=== PATIENT | female | born 1950 | race Caucasian/White ===

== ENCOUNTER 2016-11-13 11:37 | Outpatient (CLI) | payer OTHER ==
[2016-11-13 12:37] LABS: eGFR (African) > 60; eGFR (Non-African) > 60
--- NOTE | 2016-11-13 20:21 | Diagnostic Imaging Report ---
Name: OLIVE FERRERA ~~ ~~ : 46 ~~ Acc #: [id number]~~ DOS: Nov 13, 2016 11:57:41 AM CDT ~~ Mod: CR ~~ Desc: LOWER EXTREMITY 1 of 1 TEDDYLUISSAVANNA~ [facility] [address] [facility] [address] [address] ~ ~ ~ ~ Report Submission Date: Nov 13, 2016 3:10:44 PM CDT Patient ~ Study Name: OLIVE FERRERA ~ Date: Nov 13, 2016 11:57:41 AM CDT ~ Modality Type: CR Gender: F ~ Description: LOWER EXTREMITY : 46 ~ Institution: [facility] Physician: SAVANNA ESPINAL ~ ~ ~ ~ 4 views of the left femur History: right kidney mass seen on us, us sent for comparison Findings: No comparison studies Postsurgical changes are noted at the left proximal femur with surgical plate and screws in place, there is proximal left femoral deformity Degenerative changes are noted at the left hip and the knee Chondrocalcinosis is present at the knee, no evidence of acute fracture or dislocation, no suprapatellar effusion Impression: 1. Internal fixation of old proximal left femur fracture, intact hardware 2. Degenerative changes left hip and knee. No acute fracture or dislocation. No suprapatellar effusion. 3. Chondrocalcinosis at the knee. ~ Electronically signed on Nov 13, 2016 3:10:44 PM CDT by: Kelly VASQUEZ
== END 2016-11-13 11:40 ==
LOC: LAB 11:37
PROVIDERS: ATTEND Physician Assistant
DX: Z79.1 Long term (current) use of non-steroidal anti-inflammatories (NSAID) (principal); E03.9 Hypothyroidism, unspecified; M79.605 Pain in left leg
CPT/HCPCS: 36415; 73552; 80053; 84443

== ENCOUNTER 2016-12-22 14:50 | Outpatient (CLI) | payer OTHER ==
--- NOTE | 2016-12-22 15:48 | Diagnostic Imaging Report ---
[facility] [address] [facility].[address] [address] Report Submission Date: Dec 22, 2016 3:40:26 PM CDT Patient Study Name: NASRIN FERRERA Date: Dec 22, 2016 3:00:53 PM CDT Modality Type: CR Gender: F Description: SPINE : 46 Institution: [facility] Physician: HARSH SEQUEIRA - OP 3 views of the lumbar spine History: BACK PAIN. RADIATES TO L LEG Findings: No comparison studies Extensive degenerative changes are noted in the lumbar lumbar spine, most prominent from L4 to S1 with intervertebral disc space narrowing, facet arthropathy and osteophytes. Anterolisthesis of L4 on L5. Vacuum disc phenomenon L5-S1. Vascualr calcification is seen Impression: Extensive lower lumbar spine degenerative changes worst from L4 to S1 as above Grade I- II anterolisthesis of L4 on L5. Vacuum disc phenomenon L5-S1 Loss of height /compression deformity T12 vertebral body Electronically signed on Dec 22, 2016 3:40:26 PM CDT by: Kelly VASQUEZ
== END 2016-12-22 14:52 ==
LOC: RAD 14:50
PROVIDERS: ATTEND Family Medicine
DX: M54.41 Lumbago with sciatica, right side (principal)
CPT/HCPCS: 72100

== ENCOUNTER 2016-12-28 10:00 | Outpatient (CLI) | payer OTHER ==
--- NOTE | 2016-12-28 12:40 | Diagnostic Imaging Report ---
[facility] [address] [facility].[address] [address] Report Submission Date: Dec 28, 2016 12:33:31 PM CDT Patient Study Name: NASRIN FERRERA Date: Dec 28, 2016 11:00:28 AM CDT Modality Type: MR Gender: F Description: MRI L SPINE W/O CONTRAST : 46 Institution: [facility] Physician: HARSH SEQUEIRA - MENDOZA MRI of the lumbar spine Clinical history: Low back pain and left lower extremity sciatica Routine MRI of the lumbar spine is performed using sagittal of T1, T2 and STIR images followed by axial T1 and T2 weighted images , study demonstrate the following: Degenerated disc at the level of T12. T12/L1 disc level: Normal. L1/L2 disc level: 4 mm generalized bulging disc without spinal stenosis . L2/L3 disc level: Normal . L3/L4 disc level: 3 mm generalized bulging disc without spinal stenosis . L4 / L5 disc level: The disc is degenerated , narrowed with a grade I anterior spondylolisthesis of L4/L5 with 5 mm generalized bulging disc with central disc protrusion resulted in mild narrowing of the spinal canal at L4/L5 . L5/S1 disc level: The disc is degenerated, narrowed with 5 mm generalized bulging disc. No fractures or significant bone marrow edema . Impression: Multilevel disc disease process most pronounced at L4/L5 and L5/S1 as above described Electronically signed on Dec 28, 2016 12:33:31 PM CDT by: Ru VASQUEZ
== END 2016-12-28 10:02 ==
LOC: RAD 10:00
PROVIDERS: ATTEND Family Medicine
DX: M51.37 Other intervertebral disc degeneration, lumbosacral region (principal)
CPT/HCPCS: 72148

== ENCOUNTER 2017-01-05 12:25 | Outpatient (CLI) | payer OTHER ==
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
--- NOTE | 2017-01-07 11:21 | LESI WITH FLUORO ---
REFERRING PHYSICIAN: Dr. Ayde Light OPERATIVE PROCEDURE: Left L4-L5 epidural steroid injection with fluoroscopic guidance. DESCRIPTION OF PROCEDURE: The risks and benefits were discussed with the patient including the risk of infection, bleeding, nerve injury, and headache, as well as the risks of steroid exposure causing hyperglycemia, hypertension, osteoporosis, or increased infectious risks. The patient understood these risks and agreed to proceed. Consent was obtained prior to the procedure. The patient was placed in the prone position on the fluoroscopy table with a pillow underneath the abdomen to afford anterior flexion of the lumbar spine. The low back was cleaned and a sterile drape was applied. An 18-gauge thin wall Tuohy epidural needle was advanced with normal saline loss of resistance technique and direct fluoroscopic guidance with a left paramedian approach at the L4-L5 level. On obtaining loss of resistance to normal saline, it was verified that there was no aspiration of CSF or blood. Furthermore, the needle tip location was verified with lateral and AP fluoroscopic views. Omnipaque 240 myelogram dye were injected through the epidural needle. The distribution of the dye was noted to be within the desired distribution within the lumbar epidural space. Triamcinolone acetate and 1% of lidocaine was injected into the epidural space. The stylet was replaced in the needle and the needle was removed from the back. The patient tolerated the procedure well. The back was cleaned and a bandage was applied over the injection site. The patient was monitored for 20 minutes following the procedure. during this time the vital signs remained stable and the patient experienced no adverse sequelae. The patient was discharged in good condition. ASSESSMENT: L4-L5 spinal stenosis. FOLLOWUP: Return to clinic if problems develop or worsen. cc: Dr. Ayde VASQUEZ
== END 2017-01-05 12:26 ==
LOC: OUT 12:25
PROVIDERS: ATTEND Anesthesiology Pain Medicine
DX: M48.06 Spinal stenosis, lumbar region (principal)
CPT/HCPCS: J3301; Q9966; 99214; G0463

== ENCOUNTER 2017-02-09 12:21 | Outpatient (CLI) | payer OTHER ==
--- NOTE | 2017-02-09 15:31 | LUMBAR TFESI ---
SUBJECTIVE: I had the opportunity to follow up with Tess Montescherry. This is a 66-year- old white female with left lower extremity pain who had an L4-L5 epidural injection and was still hurting a great deal following the injection. I followed her up from my office in 1 week and performed a left L5 transforaminal injection. She is now much better. She continues to have some leg pain and mostly back pain. She is no longer walking on crutches. She presents for repeat L5 transforaminal today under fluoroscopy. PROCEDURE: Left L5 transforaminal epidural steroid injection with fluoroscopic guidance. DESCRIPTION OF PROCEDURE: The risks and benefits were discussed with the patient including the risks of infection, bleeding, nerve injury, and headache, as well as the risks of steroid exposure causing hyperglycemia, hypertension, osteoporosis, or increased infectious risk. The patient understood these risks and agreed to proceed. Consent was obtained. The patient was placed in the prone position on the fluoroscopy table with a pillow underneath the abdomen to afford anterior flexion of the lumbar spine. The low back was cleaned and a sterile drape was applied. AP, lateral and oblique fluoroscopic views were obtained identifying the L5 vertebral body and L5 transverse process. An oblique view of the transverse process and pedicles was obtained. A 23-gauge Quincke tip 3.5 spinal needle was advanced under direct-beam (barrel view) fluoroscopic guidance until the tip contacted the superior-most aspect of the left S1 superior articulating process. The needle was then directed superiorly and medially a few millimeters towards the intervertebral foramen. A lateral fluoroscopic view was obtained and the needle was advanced into the inferior/anterior aspect of the L5 neural foramen (L5-S1 intervertebral foramen) epidural space. It was verified that there was no aspiration of CSF or blood. Omnipaque 240 myelogram dye was injected through the needle. The dye was noted to course in the desired distribution within the lumbar foramen epidural space. The patient did report some reproduction of the low back and /or lower extremity pain symptoms; this reproduction of symptoms was short-lived, ceasing within a minute. Triamcinolone acetate, 1% lidocaine, and 0.25% bupivacaine was injected into the epidural space. The stylet was replaced in the needle and the needle was removed from the back. The patient tolerated the procedure well. The back was cleaned and a bandage was applied over the injection site. The patient was monitored for 20 minutes following the procedure. During this time the vital signs remained stable and the patient experienced no adverse sequelae. The patient was discharged home in good condition. ASSESSMENT: 1. Left L5 radicular pain. 2. Radiculitis/neuritis. PLAN: Left L5 transforaminal epidural steroid injection with fluoroscopic guidance. FOLLOWUP: Return to clinic if problems develop or worsen. cc: Dr. Ayde VASQUEZ
== END 2017-02-09 12:22 ==
LOC: OUT 12:21
PROVIDERS: ATTEND Anesthesiology Pain Medicine
DX: M54.16 Radiculopathy, lumbar region (principal)
CPT/HCPCS: 64483; 99214; G0463; J3301; J3490

== ENCOUNTER 2017-03-13 09:57 | Outpatient (CLI) | payer OTHER ==
[~2017-03-13 09:57] MED LIST: 0.9 % SODIUM CHLORIDE PF 10 ML VIAL IJ ONE; Lidocaine 1% 5ml(IM or SUTURE)(PAIN CLINIC) ONE; TRIAMCINOLONE ACETONID 40MG/ML VIAL ONE
--- NOTE | 2017-03-13 13:23 | LUMBAR TFESI ---
SUBJECTIVE: I had the opportunity of following up with Tess today as an outpatient at [facility]. This is a patient I treated with a left L5 transforaminal injection x2. She had a failed response to an epidural injection prior to that. She is much improved. She is no longer needing any assistance to walk. Her leg pain is much better. She continues to have some back and leg pain. She is uncomfortable. She has L4-L5 and L5-S1 degenerative disease, disk protrusions, and neural foraminal stenosis at L5. I am going to plan on repeating an L5 transforaminal today. I am also going to dispense information on a neurostimulator, as she is against having back surgery performed. Plan today for an L5 transforaminal epidural steroid injection with fluoroscopic guidance. PROCEDURE: Left L5 transforaminal epidural steroid injection with fluoroscopic guidance. DESCRIPTION OF PROCEDURE: The risks and benefits were discussed with the patient including the risks of infection, bleeding, nerve injury, and headache, as well as the risks of steroid exposure causing hyperglycemia, hypertension, osteoporosis, or increased infectious risk. The patient understood these risks and agreed to proceed. Consent was obtained. The patient was placed in the prone position on the fluoroscopy table with a pillow underneath the abdomen to afford anterior flexion of the lumbar spine. The low back was cleaned and a sterile drape was applied. AP, lateral and oblique fluoroscopic views were obtained identifying the L5 vertebral body and L5 transverse process. An oblique view of the transverse process and pedicles was obtained. A 23-gauge Quincke tip 3.5 spinal needle was advanced under direct-beam (barrel view) fluoroscopic guidance until the tip contacted the superior-most aspect of the left S1 superior articulating process. The needle was then directed superiorly and medially a few millimeters towards the intervertebral foramen. A lateral fluoroscopic view was obtained and the needle was advanced into the inferior/anterior aspect of the L5 neural foramen (L5-S1 intervertebral foramen) epidural space. It was verified that there was no aspiration of CSF or blood. Omnipaque 240 myelogram dye was injected through the needle. The dye was noted to course in the desired distribution within the lumbar foramen epidural space. The patient did report some reproduction of the low back and /or lower extremity pain symptoms; this reproduction of symptoms was short-lived, ceasing within a minute. Triamcinolone acetate and 1% lidocaine was injected into the epidural space. The stylet was replaced in the needle and the needle was removed from the back. The patient tolerated the procedure well. The back was cleaned and a bandage was applied over the injection site. The patient was monitored for 20 minutes following the procedure. During this time the vital signs remained stable and the patient experienced no adverse sequelae. The patient was discharged home in good condition. ASSESSMENT: Left L5 lumbar radiculopathy. PLAN: Left L5 transforaminal epidural steroid injection with fluoroscopic guidance. I dispensed information on a neurostimulator. FOLLOWUP: Follow up with my physician assistant nurse manager (PA) next month. cc: Dr. Ayde VASQUEZ
== END 2017-03-13 10:00 ==
LOC: OUT 09:57
PROVIDERS: ATTEND Anesthesiology Pain Medicine
DX: M54.16 Radiculopathy, lumbar region (principal); M51.36 Other intervertebral disc degeneration, lumbar region; M51.27 Other intervertebral disc displacement, lumbosacral region
CPT/HCPCS: J3301; Q9966; 64483; 99213; G0463

== ENCOUNTER 2017-06-23 10:46 | Outpatient (CLI) | payer OTHER ==
[2017-06-23 11:18] LABS: BASOPHILS % 0.6 (0.0-1.5); EOSINOPHILS % 4.9 % (0.0-6.8); MEAN CORPUSCULAR VOLUME 89.5 fl (80.0-100.0); MONOCYTES % 3.9 % (0.0-11.0); NEUTROPHILS # 3.3 # k/uL (1.4-7.7)
[2017-06-23 11:48] LABS: eGFR (African) > 60; eGFR (Non-African) > 60
--- NOTE | 2017-06-23 15:46 | Diagnostic Imaging Report ---
HARSH SEQUEIRA [facility] [address] [facility].[address] [address] Report Submission Date: Jun 23, 2017 2:08:51 PM CDT Patient Study Name: NASRIN FERRERA Date: Jun 23, 2017 1:42:44 PM CDT Modality Type: CR Gender: F Description: CHEST : 46 Institution: [facility] Physician: HARSH SEQUEIRA Examination: PA and lateral chest. History: Evaluate lung lisa. Findings: PA lateral chest demonstrate a normal cardiac and mediastinal silhouette. Tortuosity of thoracic aorta. Mild parenchymal haziness involving the right inferior hilar region. No peripheral consolidation. No blunting of the costophrenic margins. Osseous structures are appropriate for age. Impression: Mild right hilar infiltrate. No effusion Electronically signed on Jun 23, 2017 2:08:51 PM CDT by: Abdoulaye VASQUEZ
--- NOTE | 2017-06-23 15:47 | Diagnostic Imaging Report ---
HARSH SEQUEIRA [facility] [address] [facility].[address] [address] Report Submission Date: Jun 23, 2017 1:51:00 PM CDT Patient Study Name: NASRIN FERRERA Date: Jun 23, 2017 1:12:18 PM CDT Modality Type: US Gender: F Description: BILAT US DVT : 46 Institution: [facility] Physician: HARSH SEQUEIRA Examination: Ultrasound vein History: Leg discomfort Findings: Sonographic evaluation of the lower extremity venous system from the groin to the popliteal fossa inclusive bilaterally. Normal compressibility. No luminal filling defect. Normal waveforms and response to augmentation. No popliteal region fluid collection. Impression: No evidence for deep venous thrombosis. Electronically signed on Jun 23, 2017 1:51:00 PM CDT by: Abdoulaye VASQUEZ
== END 2017-06-23 11:50 ==
LOC: RAD 10:46
PROVIDERS: ATTEND Family Medicine
DX: M79.661 Pain in right lower leg (principal); R07.9 Chest pain, unspecified; M79.606 Pain in leg, unspecified; M79.89 Other specified soft tissue disorders
CPT/HCPCS: 36415; 71020; 80053; 85025; 93970

== ENCOUNTER 2017-07-21 14:30 | Outpatient (CLI) | payer OTHER | END 2017-07-21 14:32 | LOC: CARD 14:30 | PROVIDERS: ATTEND Internal Medicine Cardiovascular Disease | DX: R07.9 Chest pain, unspecified (principal); R60.9 Edema, unspecified | CPT/HCPCS: G0463 ==

== ENCOUNTER 2017-08-26 09:46 | Outpatient (CLI) | payer OTHER | END 2017-08-26 10:00 | LOC: LAB 09:46 | PROVIDERS: ATTEND Family Medicine | DX: I10 Essential (primary) hypertension (principal) | CPT/HCPCS: 36415; 80061 ==

== ENCOUNTER 2018-05-25 14:24 | Outpatient (CLI) | payer OTHER | END 2018-05-25 14:25 | LOC: LAB 14:24 | PROVIDERS: ATTEND Family Medicine | DX: E03.9 Hypothyroidism, unspecified (principal) | CPT/HCPCS: 36415; 84443 ==

== ENCOUNTER 2018-05-31 08:26 | Day surgery (SDC) | payer OTHER ==
[2018-05-31] MEDS ORDERED: PROPOFOL 200 MG/20 ML VIAL IV ONE (08:30)
[2018-05-31] MEDS ORDERED: LIDOCAINE HCL/PF 2% 100 MG/5 ML VIAL IJ ONE (08:30)
[2018-05-31] MEDS ORDERED: SALINE FLUSH 10 ML DISP.SYRIN IVF ONE (08:30)
[2018-05-31] MEDS ORDERED: LACTATED RINGERS 1,000 ML IV.SOLN IV ONE (08:30)
--- NOTE | 2018-05-31 11:53 | GI Report ---
REFERRING PHYSICIAN: Dr. Ayde Light PHYSICAL SCIENCE AIDE: Min Reyes MD PROCEDURE MEDICATION: Propofol as per anesthesia. INDICATIONS: This 67-year-old woman has had indigestion and some difficulty swallowing. Sometimes it takes a couple of minutes. Usually, she can drink liquid and wash it down. She was a tpenqi-ke-eaoa-a-day cigarette smoker for 30 some years. She did stop 10 years ago in 2007. She is 5 feet 4 inches and weighs 84 kilograms and carries that weight centrally. PROCEDURE PERFORMED: Endoscopy and esophageal dilatation and biopsies. PROCEDURE: An Olympus video endoscope is passed through the esophagus under direct visualization. Patient has a short esophagus. The GE junction is only at about 31 cm. She then has a 7 cm to 8 cm hiatal hernia, sliding. Antrum of the stomach shows mild diffuse gastritis with erythema and friability. Biopsies were taken for pathology and H. Pylori. Duodenal bulb and first and second part of the duodenum exam were normal. A guidewire was placed in the stomach. Endoscope was removed. A 16 mm or a 48 Green[place]ic passed without resistance. The endoscope was reintroduced. There was no friability or bleeding. The patient tolerated the procedure well. FINDINGS: 1. Large hiatal hernia, 7 cm to 8 cm in size. 2. Distal esophagitis which was biopsied. 3. Esophageal dilatation to a 48-Greenlandic. 4. Suspect some motility disorder of the esophagus. 5. Gastritis. RECOMMENDATIONS: 1. Elevate the head of the bed at least 2 or 3 inches. 2. Would take her PIP 15 to 30 minutes before a meal. 3. Would take an antacid, like Gaviscon, at bedtime. 4. Weight loss of even 10 or 15 pounds would help decrease intragastric pressure and particularly improves reflux. 5. Avoid cold liquids with meals and pills. 6. Follow up with Dr. Light. 7. If her swallowing still is not better, a video swallow or esophageal motility study would be the next considerations. cc: Dr. Ayde VASQUEZ
== END 2018-05-31 08:28 ==
LOC: OPSURG 08:26
PROVIDERS: ATTEND Internal Medicine Gastroenterology
DX: K44.9 Diaphragmatic hernia without obstruction or gangrene (principal); K20.8 Other esophagitis; K22.2 Esophageal obstruction; K29.70 Gastritis, unspecified, without bleeding
CPT/HCPCS: 88305; J2001; J2704; J7120; 43239; 43248; S1016

== ENCOUNTER 2019-04-07 09:36 | Outpatient (CLI) | payer MEDICARE ==
--- NOTE | 2019-04-12 10:34 | OP Clinic Progress Note ---
DATE OF VISIT: 04/07/2019 SUBJECTIVE: Charo García (Carol) is a 68-year-old year female presenting to clinic today for a left heel plantar fascia injection. She was seen in clinic this week and found to have plantar fasciitis of the left heel as well as a gastrocnemius equinus of the left lower extremity. The patient was to go home and check her shoes and inserts to see if we needed to get her a better insert to support her arches. The patient states that her shoes seem to not fold in half and seem to be good and strong in the middle and would like to continue using those for now. The patient wanted us to see if we could get approval from her doctor who is doing a surgery on her right knee on April 20, to find out if they are okay with doing a steroid injection now on the left heel as she will be putting more weight on the left once the surgery is performed on the right. We got approval from Dr. Diaz to go ahead and do a steroid injection on the left heel and he encouraged that we do it RENAN as the surgery will be coming up soon. The patient was called and she was able to come in today so we could do that injection today for her. She does not admit to any fever, chills, nausea, vomiting, shortness of breath or chest pain. She admits she is doing good stretching exercises. She knows she will need to continue this even after the injection and even if the foot is feeling great in order to try and help prevent a recurrence of the pain in the left plantar fascia. OBJECTIVE: Vitals: Temperature 97.4 degrees Fahrenheit, heart rate 59, respiration rate 21, blood pressure 151/94. O2 saturation is 95% on room air. Please note that the patient took the blood pressure medication here after the vital signs were taken as she "forgot this morning." Vascular: 2+ DP and PT pulses, left foot. Capillary refill time is less than 3 seconds to the toes of the left foot. There is no edema, left foot. Dermatologic: There are no open lesions, ecchymoses or abnormal skins lesions left foot. There are no concerning areas of the skin, left foot. Musculoskeletal: There is pain on palpation noted at the plantar medial calcaneal tubercle and plantar central distal heel. Ankle dorsiflexion as noted previously was to 90 degrees with the knee extended on the left and improved about 5 degrees with the knee flexed on the left. There is no pain on palpation from previous exam on the posterior heel or along the Achilles tendon of the left lower extremity. Neurologic: Light touch sensation is intact to the toes, left foot. ASSESSMENT AND PLAN: 1. Plantar fasciitis of the left foot, M72.2. 2. Gastrocnemius equinus of the left lower extremity, M21.6X2. PROCEDURE #1: Steroid injection of the left plantar fascia was performed. Consent was discussed with the patient and risk and benefits that include, but are not limited to bleeding, infection and steroid flare and the patient agreed both by written and verbal consent to go forward with a steroid injection in the left plantar fascia today. Consent was signed and placed in the chart. An alcohol swab was utilized to cleanse the plantar medial calcaneal tubercle area of the left heel and an injection consisting of 1 cc of 2% Lidocaine plain, 1 cc of 0.5% Marcaine plain, 0.5 cc of dexamethasone 4 mg/mL and 0.5 cc of Kenalog 40 mg/L was injected into the plantar fascia area of the left heel. Aspiration was attempted and caution was taken to avoid any vascular structures. The patient had hemostasis obtained with pressure and a Band-Aid was applied today. The patient tolerated the procedure well. The patient will return to clinic in four weeks for follow up and possible repeat injection if needed. We will probably try and avoid, however, any sort of injection at that time as she is recently status post a surgery on the right knee. We will likely just plan on trimming her toenails at that time as she states they are too thick and she is unable to do them at this time. We will likely have her follow up next door in the [facility] for toenail trimming and follow up of the left plantar fascia injection and consider other options such as physical therapy if she is not getting enough improvement rather than a steroid injection. I do not feel comfortable doing the steroid injection that soon after her surgery. Mary CaryP.M.(Dictated/not signed) /[employer] [id number] /mab MTDD
== END 2019-04-07 10:05 ==
LOC: POD 09:36
PROVIDERS: ATTEND Podiatrist Foot & Ankle Surgery
DX: M72.2 Plantar fascial fibromatosis (principal); M21.6X2 Other acquired deformities of left foot
CPT/HCPCS: 20550; 99213; G0463; J1100; J3301; J3490; A4554

== ENCOUNTER 2019-07-18 15:53 | Outpatient (CLI) | payer MEDICARE ==
--- NOTE | 2019-07-18 16:38 | Diagnostic Imaging Report ---
PATIENT MR#: [id number] PATIENT PATIENT NAME: OLIVE FERRERA DATE OF : 1950 REFERRING PHYSICIAN: Ayde Light EXAM DATE: 07/18/2019 ACCESSION NUMBER: [id number] EXAM DESCRIPTION: US U OR L EXT VEINS UNILAT Examination: Ultrasound left vein History: PAIN OF LT CALF Findings: Sonographic evaluation of the left lower extremity venous system from the groin to the popl iteal fossa inclusive. Normal compressibility. No luminal filling defect. Normal waveforms and response to augmen tation. No popliteal region fluid collection. Impression: No evidence for deep venous thrombosis. Read by: Dr. Abdoulaye Carlton Transcribed by: Transcribed Date: Electronically signed by: Dr. Abdoulaye Carlton Date signed: 07/18/2019 4:38:24 PM
== END 2019-07-18 16:03 ==
LOC: RAD 15:53
PROVIDERS: ATTEND Family Medicine
DX: M79.662 Pain in left lower leg (principal)
CPT/HCPCS: 93971